=== PATIENT | male | born 1975 | race Caucasian/White ===

== ENCOUNTER 2024-10-21 15:22 | Emergency (ER) | payer MEDICAID ==
[~2024-10-21] VITALS: Ht 172.7 cm; Wt 91.0 kg
[2024-10-21] MEDS ORDERED: SODIUM CHLORIDE 0.9% 1,000 ML IV ONE (15:45)
[2024-10-21 15:47] LABS: BASOPHILS 0.7 % (0.2-1.2); EOSINOPHILS 0.2 % (0.8-7.0); LYMPHOCYTES 22.6 % (21.8-53.1); MCH 31.0 PG (25.7-32.2); MCHC 36.1 g/dL (32.3-36.5); MCV 86.0 fL (79.0-92.2); MONOCYTES 6.8 % (5.3-12.2); NEUTROPHILS 69.5 % (34.0-67.9); RBC 5.42 M/uL (4.63-6.08)
[2024-10-21 16:01] LABS: ALCOHOL, MEDICAL 278.0 ng/dL (<3); ALT (SGPT) 26.0 U/L (14-59); AST (SGOT) 22.0 U/L (15-37); GLOMERULAR FILTRATION RATE,EST 85.0 mL/min (>60); PROTEIN, TOTAL 6.8 g/dL (6.4-8.2); UREA NITROGEN 16.0 mg/dL (7-18)
[2024-10-21] MEDS ORDERED: ONDANSETRON ODT4 MG PO (16:51)
[2024-10-21 17:01] LABS: AMPHETAMINES, URINE NEGATIVE (NEGATIVE); BARBITURATES, URINE NEGATIVE (NEGATIVE); BENZODIAZEPINE, URINE NEGATIVE (NEGATIVE); CANNABINOID, URINE POSITIVE (NEGATIVE); COCAINE, URINE NEGATIVE (NEGATIVE); ECSTASY, URINE NEGATIVE (NEGATIVE); FENTANYL, URINE NEGATIVE (NEGATIVE); METHADONE, URINE NEGATIVE (NEGATIVE); OPIATES, URINE NEGATIVE (NEGATIVE); OXYCODONE, URINE NEGATIVE (NEGATIVE); PHENCYCLIDINE, URINE NEGATIVE (NEGATIVE)
[2024-10-21 17:04] VITALS: BP 137/86
[2024-10-22] MEDS ORDERED: NALTREXONE HCL50 MG PO (21:17)
[2024-10-22] MEDS ORDERED: CHLORDIAZEPOXID25 MG PO (21:17)
== END 2024-10-21 17:02 | disposition home or self-care (01) ==
LOC: ED 15:22
PROVIDERS: Emergency Medicine
DX: F10.129 Alcohol abuse with intoxication, unspecified (principal)
CPT/HCPCS: 36415; 80053; 80307; 85025; 96374; 99284-25; G0480; J2405; J7030

== ENCOUNTER 2024-10-22 17:46 | Emergency (ER) | payer MEDICAID ==
[~2024-10-22] VITALS: Ht 172.7 cm; Wt 90.8 kg
[~2024-10-22 17:46] MED LIST: ONDANSETRON ODT4 MG PO
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
[2024-10-22] MEDS ORDERED: MULTIVITAMINS THERAPEUTIC 1 EA TAB PO ONE (19:45)
[2024-10-22] MEDS ORDERED: THIAMINE HCL 200 MG/2 ML VIAL IV ONE (19:45)
[2024-10-22] MEDS ORDERED: diazePAM 10 MG/2 ML SYR IV ONE (19:45)
[2024-10-22] MEDS ORDERED: SODIUM CHLORIDE 0.9% 1,000 ML IV ONE (19:45)
[2024-10-22] MEDS ORDERED: FOLIC ACID 1 MG/0.2 ML ML IV ONE (19:45)
[2024-10-22 19:51] LABS: BASOPHILS 1.0 % (0.2-1.2); EOSINOPHILS 1.0 % (0.8-7.0); LYMPHOCYTES 39.0 % (21.8-53.1); MCH 30.5 PG (25.7-32.2); MCHC 34.8 g/dL (32.3-36.5); MCV 87.8 fL (79.0-92.2); MONOCYTES 6.4 % (5.3-12.2); NEUTROPHILS 52.6 % (34.0-67.9); RBC 4.91 M/uL (4.63-6.08)
[2024-10-22 20:08] LABS: ALCOHOL, MEDICAL 287.0 ng/dL (<3); ALT (SGPT) 29.0 U/L (14-59); AST (SGOT) 22.0 U/L (15-37); GLOMERULAR FILTRATION RATE,EST 82.0 mL/min (>60); PROTEIN, TOTAL 5.9 g/dL (6.4-8.2); UREA NITROGEN 10.0 mg/dL (7-18)
[2024-10-22 20:29] LABS: AMPHETAMINES, URINE NEGATIVE (NEGATIVE); BARBITURATES, URINE NEGATIVE (NEGATIVE); BENZODIAZEPINE, URINE NEGATIVE (NEGATIVE); CANNABINOID, URINE NEGATIVE (NEGATIVE); COCAINE, URINE NEGATIVE (NEGATIVE); ECSTASY, URINE NEGATIVE (NEGATIVE); FENTANYL, URINE NEGATIVE (NEGATIVE); METHADONE, URINE NEGATIVE (NEGATIVE); OPIATES, URINE NEGATIVE (NEGATIVE); OXYCODONE, URINE NEGATIVE (NEGATIVE); PHENCYCLIDINE, URINE NEGATIVE (NEGATIVE)
[2024-10-22] MEDS ORDERED: CHLORDIAZEPOXID25 MG PO (21:17)
[2024-10-22] MEDS ORDERED: NALTREXONE HCL50 MG PO (21:17)
[2024-10-22] MEDS ORDERED: LORazepam 1 MG HOME.PACK PO ONE (21:30)
[2024-10-22 21:36] VITALS: BP 125/77
== END 2024-10-22 21:45 | disposition home or self-care (01) ==
LOC: ED 17:46
PROVIDERS: Family Medicine
DX: F10.10 Alcohol abuse, uncomplicated (principal); Y90.8 Blood alcohol level of 240 mg/100 ml or more
CPT/HCPCS: 36415; 80053; 80307; 83735; 85025; 96374; 96375; 99283-25; G0480; J3360; J3411; J7030